=== PATIENT | male | born 1965 | race Caucasian/White ===

== ENCOUNTER 2019-01-30 18:15 | Inpatient (IN) | payer OTHER ==
[2019-01-30] MEDS ORDERED: Aspirin 81mg Chewable Tab PO STA (18:23)
[2019-01-30] MEDS ORDERED: Albuterol/Ipratropium Neb 3 ML AERS HHN ONE ×2 (18:29→19:02)
--- NOTE | 2019-01-30 18:29 | ED Physician Chart ---
ED Chief Complaint/HPI - Patient Information Date Seen:: 01/30/19 Time Seen:: 18:10 Chief Complaint:: Chest Pain History of Present Illness:: onset x 2 hours of chest pain cough, and dyspnea; pt denies trauma, H/As, S/T, neck pain, Abd. Pain, A/N/V/D/C, fever, chills, or urinary s/s Historian:: Patient, Friend Review:: Nurse's Note Reviewed, Old Chart Reviewed ED Review of Systems - Review of Systems General/Constitutional: No fever, No chills, No weight loss, No weakness, No diaphoresis, No edema, No loss of appetite Skin: No skin lesions, No rash, No bruising Head: No headache, No light-headedness Eyes: No loss of vision, No pain, No diplopia ENT: No earache, No nasal drainage, No sore throat, No tinnitus Neck: No neck pain, No swelling, No thyromegaly, No stiffness, No mass noted Cardio Vascular: Chest pain, No palpitations, No PND, No orthopnea, No edema Pulmonary: SOB, Cough, No sputum, Wheezing GI: No nausea, No vomiting, No diarrhea, No pain, No melena, No hematochezia, No constipation, No hematemesis G/U: No dysuria, No frequency, No hematuria, No nacturia Musculoskeletal: No bone or joint pain, No back pain, No muscle pain Endocrine: No polyuria, No polydipsia Psychiatric: No prior psych history, No depression, No anxiety, No suicidal ideation, No homicidal ideation, No auditory hallucination, No visual hallucination Hematopoietic: No bruising, No lymphadenopathy Allergic/Immuno: No urticaria, No angioedema Neurological: No syncope, No focal symptoms, No weakness, No paresthesia, No headache, No seizure, No dizziness, No confusion, No vertigo ED Past Medical History - Past Medical History Obtainable: Yes Past Medical History: Asthma/COPD Family History: HTN Social History: Smoker, Alcohol, No Drug Use, Single Surgical History: Hernia Psychiatricy History: None Medication: Reviewed ED Physical Exam - Physical Examination General/Constitutional: Awake, Well-developed, well-nourished, Alert, No distress, GCS 15, Non-toxic appearing, Ambulatory Head: Atraumatic Eyes: Lids, conjuctiva normal, PERRL, EOMI Skin: Nl inspection, No rash, No skin lesions, No ecchymosis, Well hydrated, No lymphadenopathy ENMT: External ears, nose nl, TM canals nl, Nasal exam nl, Lips, teeth, gums nl , Oropharynx nl, Tonsils nl Neck: Nontender, Full ROM w/o pain, No JVD, No nuchal rigidity, No bruit, No mass, No stridor Respiratory: Nl effort/Exclusion Other Respiratory comments:: Lungs: + Rales, Rhonchi, and Wheezes Cardio Vascular: RRR, No murmur, gallop, rubs, NL S1 S2, Carotid/Femoral/Distal pulses equal bilaterally GI: No tenderness/rebounding/guarding, No organomegaly, No hernia, Normal BS's, Nondistended, No mass/bruits, No McBurney tenderness, Rectum exam nl : No CVA tenderness Extremities: No tenderness or effusion, Full ROM, normal strength in all extremities, No edema, Normal digits & nails Neuro/Psych: Alert/oriented, DTR's symmetric, Normal sensory exam, Normal motor strength, Judgement/insight normal, Mood normal, Normal gait, No focal deficits Misc: Normal back, No paraspinal tenderness ED Labs/Radiology/EKG Results - Lab Results Comments:: Reviewed - Radiology Results Comments:: CXR: + Infiltrate; COPD - EKG Interpretations EKG Time:: 18:58 Rate & Rhythm: 109; ST Comments:: non-specific st-t changes ED Septic Shock - . Is Septic Shock (SBP<90, OR Lactate>4 mmol\L) present?: No ED Reassessment (Disposition) - Reassessment Reassessment Condition:: Improved - Diagnosis Diagnosis:: Chest Pain; Dyspnea; Cough; COPD; Tachycardia; Pneumonia; Sepsis; Leukocytosis; Exacerbation of COPD; Angina Pectoris; Dehydration
[2019-01-30] MEDS ORDERED: Aspirin 81mg Chewable Tab ONE (18:43)
[2019-01-30 18:48] LABS: EOSINOPHILE ABSOLUTE 0.5 Th/cmm (0.1-0.4); HEMOGLOBIN 15.2 gm/dL (12-16); LYMPHOCYTE ABSOLUTE 1.3 Th/cmm (1.5-3.0); MEAN CELL VOLUME 89.3 fl (80-99); MEAN CORPUSCULAR HEMOGLOBIN 30.9 pg (26.0-30.0); MEAN CORPUSCULAR HGB CONC 34.6 pg (28.0-36.0); MONOCYTE ABSOLUTE 1.4 Th/cmm (0.3-1.0); NEUTROPHILE ABSOLUTE 16.8 Th/cmm (1.8-8.0); PLATELET COUNT 394 Th/cmm (150-400); RED BLOOD COUNT 4.92 Mil/cmm (4.30-5.70)
[2019-01-30 18:58] LABS: INR 0.95 (0.5-1.4)
[2019-01-30] MEDS ORDERED: cefTRIAXone 1 GM in Sodium Chloride 0.9% 50 ML IV ONE (19:05)
[2019-01-30] MEDS ORDERED: Sodium Chloride 0.9% 1,000 ML IV ONE (19:11)
[2019-01-30 19:24] LABS: ALB/GLOB RATIO 1.5 (1.0-1.8); ALBUMIN 4.5 gm/dL (4.2-5.5); ALKALINE PHOSPHATASE 120 U/L (34-104); ANION GAP 17.2 (7.0-16.0); BILIRUBIN,TOTAL 0.5 mg/dL (0.3-1.0); BUN - UREA NITROGEN 10 mg/dL (7-25); CALCIUM SERUM 9.6 mg/dL (8.6-10.3); CARBON DIOXIDE 22.5 mEq/L (21.0-31.0); CHLORIDE 102 mEq/L (98-107); CHOLESTEROL 236 mg/dL (<200); CREATININE - SERUM 0.9 mg/dL (0.7-1.3); CREATININE KINASE 445 U/L (30-223); GFR AFRICAN-AMERICAN > 60.0 ml/min (>90); GFR NON AFRICAN-AMERICAN > 60.0 ml/min; GLUCOSE 114 mg/dL (70-105); HDL -HIGH DENSITY LIPOPROTEIN 53 mg/dL (23-92); POTASSIUM SERUM 3.7 mEq/L (3.5-5.1); SGOT 24 U/L (13-39); SGPT/ALT 27 U/L (7-52); SODIUM SERUM 138 mEq/L (136-145); TOTAL PROTEIN,SERUM 7.5 gm/dL (6.0-8.3); TRIGLYCERIDES 66 mg/dL (<150)
[2019-01-30 19:39] LABS: DDIMER QUANT < 100 ng/mL (100-400)
[2019-01-30 19:58] LABS: EOSINOPHIL 0 % (0-5); LYMPHOCYTE 8 % (20-50); MONOCYTE 8 % (2-10); NEUTROPHILS 84 % (40-80); PLATELET ESTIMATE ADEQUATE (NORMAL)
[2019-01-30 19:59] LABS: PLATELET MORPHOLOGY NORMAL (NORMAL)
[2019-01-30] MEDS ORDERED: Acetaminophen 500 MG TAB PO PRN (20:39)
[2019-01-30] MEDS: Albuterol Nebulizer 2.5mg/3mL HHN PRN (22:15)
[2019-01-30 23:37] VITALS: BP 124/87
[2019-01-31] MEDS: Azithromycin 500 MG in Sodium Chloride 0.9% 250 ML IV SCH ×3 (00:39→20:45)
[2019-01-31] MEDS: Albuterol Nebulizer 2.5mg/3mL HHN PRN ×5 (02:17→23:26)
[2019-01-31] MEDS: methylPREDNISolone SS 40 mg Vial IVP SCH ×4 (02:57→17:48)
[2019-01-31] MEDS ORDERED: methylPREDNISolone SS 40 mg Vial IVP SCH (06:00)
--- NOTE | 2019-01-31 09:17 | Diagnostic Imaging Report ---
CHEST X-RAY: AP view INDICATION: pain COMPARISON: None FINDINGS: Chronic lung changes are noted. There is no focal consolidation or pleural effusions The heart is normal in size. The osseous structures demonstrate no acute abnormalities. IMPRESSION: Chronic lung changes. No focal consolidation identified.
--- NOTE | 2019-01-31 09:33 | Diagnostic Imaging Report ---
CT Chest without IV contrast HISTORY: Chest pain COMPARISON: Chest x-ray performed on 01/30/2019. Technique: Axial images were obtained from the base of the neck to the upper abdomen following administration of IV contrast. Coronal reconstructions were made. Total DLP to 53, CTD I 6 FINDINGS: Evaluation of the mediastinum is limited due to lack of IV contrast. Borderline prominent mediastinal lymph nodes are seen the largest along the right paratracheal region measuring 1.0 x 0.7 cm (image 28, series 2). No evidence of an aortic aneurysm. Heart size is normal. No pericardial effusion identified. Minimal atherosclerotic vascular disease is noted. Evaluation of the lungs demonstrates hyperinflated lungs and possible COPD changes with mild bullous changes of the lung apices. There are mild atelectatic changes of the lung bases with 1 to 2 mm nodularities along the lung bases. No effusions or focal consolidation. There is focal eventration of the right hemidiaphragm. The upper abdomen demonstrates evidence of prior cholecystectomy. The osseous structures demonstrate no acute abnormalities. IMPRESSION: Limited exam due to lack of IV contrast. Minimal atherosclerotic vascular disease is noted. No evidence of an aortic aneurysm. COPD lung changes with mild biapical bullous changes. Minimal hypoventilatory and atelectatic changes at lung bases with tiny 1 to 2 mm nodularities, nonspecific however, infectious or inflammatory process cannot be excluded. Consider follow-up surveillance exam after resolution of acute symptoms. No focal consolidation or effusions Borderline prominent mediastinal lymph nodes nonspecific. Evidence of prior cholecystectomy.
[2019-01-31 12:26] LABS: URINE SOURCE MIDSTREAM
[2019-01-31 12:29] LABS: URINE BILIRUBIN NEGATIVE (NEGATIVE); URINE BLOOD NEGATIVE (NEGATIVE); URINE GLUCOSE (UA) 250 mg/dL (NEGATIVE); URINE KETONE NEGATIVE (NEGATIVE); URINE LEUKOCYTE ESTERASE NEGATIVE (NEGATIVE); URINE NITRATE NEGATIVE (NEGATIVE); URINE PROTEIN NEGATIVE (NEGATIVE); URINE UROBILINOGEN 0.2 E.U./dL (0.2 - 1.0)
[2019-01-31 12:30] LABS: URINE CLARITY CLEAR (CLEAR); URINE COLOR YELLOW; URINE MICROSCOPIC INDICATED? YES
[2019-01-31 12:38] LABS: URINE EPITHELIAL CELLS OCCASIONAL /lpf (FEW); URINE RBC NONE SEEN /hpf (0-5); URINE WBC 0-2 /hpf (0-5)
[2019-01-31 12:42] LABS: URINE BACTERIA RARE /hpf (NONE SEEN)
[2019-02-01] MEDS: methylPREDNISolone SS 40 mg Vial IVP SCH ×4 (00:08→18:14)
--- NOTE | 2019-02-01 02:14 | Consultation ---
DATE OF CONSULTATION: 01/31/2019 INFECTIOUS DISEASE CONSULTATION REFERRING PHYSICIAN: Dr. Schumacher. REASON FOR CONSULTATION: Leukocytosis. HISTORY OF PRESENT ILLNESS: The patient is a 53-year-old male with a past medical history of severe COPD, presented to the ER for cough and shortness of breath. The patient denies any fever or chills. On initial evaluation, his temperature was 98.7 degrees Fahrenheit and WBC count was 20,000 with neutrophil 84%. CT scan of the chest showed severe COPD with bullous changes and a small 1-2 mm nodule. Otherwise, no acute changes. No consolidation. Besides this, the patient's CPK was 445. Antibiotic torres, the patient was started on Zosyn and Zithromax. ID consult was called for further antibiotic management. PAST MEDICAL HISTORY: Includes COPD. ALLERGIES: TRAMADOL. MEDICATIONS: As per medication reconciliation sheet. Antibiotic torres, the patient on Zosyn and Zithromax. SOCIAL HISTORY: The patient lives at home. The patient has a history of smoking in the past, quit 3 years ago. He was at the [employer]. No alcohol, no drug use. FAMILY HISTORY: Hypertension as per the chart. REVIEW OF SYSTEMS: GENERAL: The patient has no fever, no chills, no generalized weakness. HEENT: The patient denies any diplopia, photophobia, or sore throat. RESPIRATORY: The patient has a cough and shortness of breath with wheezing, improving with the current treatment. CARDIOVASCULAR: The patient denies any chest pain or palpitation. GASTROINTESTINAL: The patient denies any nausea, vomiting, diarrhea or constipation. GENITOURINARY: No dysuria. NEUROLOGIC: No headache, no dizziness, no focal weakness. PHYSICAL EXAMINATION: CURRENT VITAL SIGNS: Shows temperature is 97.4 degrees Fahrenheit, pulse 100, respiration is 20, blood pressure 125/68. GENERAL: The patient is comfortable lying in the bed, not in acute distress. Well nourished, well developed. HEENT: Head is normocephalic, atraumatic. Oral cavity moist, pink tongue. EYES: No pallor, no icterus. Pupils PERRLA, EOMI. NECK: Supple, no JVD, no carotid bruit. Trachea in midline. CHEST: Bilateral vesicular sounds noted. No crackles or wheezing. HEART: S1, S2 within normal limits. Regular rhythm. No murmur, no gallop. ABDOMEN: Soft, nontender, nondistended. Bowel sounds present. EXTREMITIES: No cyanosis, no clubbing, no edema. NEUROLOGICAL: Alert, awake, oriented x 3. No focal deficit. LABORATORY DATA: Current lab shows WBC count is 20,000, hemoglobin is 15.2, hematocrit 44, platelets are 394,000, neutrophil 84% and INR 0.95. Sodium 138, potassium 3.7, chloride 102, bicarbonate is 22.5, BUN is 10, creatinine 0.9, glucose is 114. Lactic acid 1.92. Urinalysis negative nitrite, negative leukoesterase. ____ is less than 10. Chest x-ray, chronic lung changes, no focal consolidation. CT scan of the chest suggested a minimal atherosclerotic vascular disease, no evidence of aortic aneurysm, COPD changes with mild biapical bullous changes, minimal hypoventilatory and atelectatic changes at the lung bases with tiny 1-2 mm nodularities. Nonspecific; however, infectious or inflammatory process cannot be excluded. Consider followup surveillance exam without resolution of acute symptoms. No focal consolidation, borderline prominent mediastinal lymph node, nonspecific, evidence of prior cholecystectomy. IMPRESSION: 1. Leukocytosis, most likely reactive. 2. Lower lobe nodular infiltrate, pneumonia versus atelectasis. 3. Chronic obstructive pulmonary disease exacerbation. 4. Rhabdomyolysis. RECOMMENDATIONS: Continue IV fluid support, steroid and change antibiotic to Rocephin and Zithromax. Follow up CBC. Monitor CPK and CBC in the morning. Continue Zithromax. Thank you, Dr. Schumacher for involving me in taking care of this patient. [facility]# [id number]
[2019-02-01] MEDS: Albuterol Nebulizer 2.5mg/3mL HHN PRN ×4 (07:06→22:28)
--- NOTE | 2019-02-01 14:42 | Consultation ---
DATE OF CONSULTATION: 01/31/2019 PATIENT OF: Dr. Schumacher. Thank you very much for this consultation. HISTORY OF PRESENT ILLNESS: The patient is a 53-year-old male with history of COPD for 3 years. The patient started having increased shortness of breath, cough, congestion and wheezing and was admitted for treatment and management. The patient was started on IV Solu-Medrol, has improved since last night and he is still having some wheezing and cough. The patient uses Symbicort at home. He has moved from [place] here. He is planning to stay here. SOCIAL HISTORY: Smoking for 30 years, over 1-2 packs a day, quit about 3 years ago. REVIEW OF SYSTEMS: GENERAL: No weakness and fatigue. CARDIOVASCULAR: No chest pain or palpation. RESPIRATORY: Shortness of breath, wheezing. GASTROINTESTINAL: No vomiting. PHYSICAL EXAMINATION: GENERAL: He is awake, alert, not in acute distress. VITAL SIGNS: Temperature 97.1, pulse 92, respirations 18, blood pressure 124/____, saturation 90%. HEENT: Atraumatic and normocephalic. Pupils react to light and accommodation. Ears, nose and throat normal. NECK: Supple. No JVD. CHEST: There is diffuse wheezing and rhonchi bilaterally. HEART: Regular rate and rhythm. ABDOMEN: Soft. EXTREMITIES: No edema. LABORATORY DATA: WBC is 20.0, hemoglobin is 15.2, hematocrit 44.0, platelets 394. Sodium is 130, potassium 3.7, BUN is 10, creatinine 0.9. IMPRESSION: This is a 53-year-old male with: 1. Acute chronic obstructive pulmonary disease exacerbation. 2. Acute bronchitis. PLAN: 1. IV Solu-Medrol. 2. Nebulizer. 3. Antibiotics. We will follow the patient with you. Thank you very much for this consultation. JOB# [id number]
[2019-02-01] MEDS: Azithromycin 500 MG in Sodium Chloride 0.9% 250 ML IV SCH (20:27)
--- NOTE | 2019-02-01 23:28 | General Progress Note ---
Subjective - Review of Systems Service Date: 02/01/19 Subjective: Patient seen and examined feels better sob better denied chest pain or palpitation or fever or chills Objective - Results Result Diagrams: 01/30/19 18:40 01/30/19 18:40 Recent Labs: Laboratory Last Values WBC 20.0 Th/cmm (4.8-10.8) H 01/30/19 18:40 RBC 4.92 Mil/cmm (4.30-5.70) 01/30/19 18:40 Hgb 15.2 gm/dL (12-16) 01/30/19 18:40 Hct 44.0 % (41.0-60) 01/30/19 18:40 MCV 89.3 fl (80-99) 01/30/19 18:40 MCH 30.9 pg (26.0-30.0) H 01/30/19 18:40 MCHC Differential 34.6 pg (28.0-36.0) 01/30/19 18:40 RDW 13.0 % (11.5-20.0) 01/30/19 18:40 Plt Count 394 Th/cmm (150-400) 01/30/19 18:40 MPV 7.6 fl 01/30/19 18:40 Add Manual Diff YES 01/30/19 18:40 Neutrophils (Manual) 84 % (40-80) H 01/30/19 18:40 Lymphocytes 8 % (20-50) L 01/30/19 18:40 Monocytes 8 % (2-10) 01/30/19 18:40 Eosinophils 0 % (0-5) 01/30/19 18:40 Platelet Estimate ADEQUATE (NORMAL) 01/30/19 18:40 Platelet Morphology NORMAL (NORMAL) 01/30/19 18:40 RBC Morph Micro Appear NORMAL (NORMAL) 01/30/19 18:40 PT 9.9 SECONDS (9.5-11.5) 01/30/19 18:40 INR 0.95 (0.5-1.4) 01/30/19 18:40 PTT (Actin FS) 28.7 SECONDS (26.0-38.0) 01/30/19 18:40 D-Dimer < 100 ng/mL (100-400) L 01/30/19 18:40 Sodium 138 mEq/L (136-145) 01/30/19 18:40 Potassium 3.7 mEq/L (3.5-5.1) 01/30/19 18:40 Chloride 102 mEq/L (98-107) 01/30/19 18:40 Carbon Dioxide 22.5 mEq/L (21.0-31.0) 01/30/19 18:40 Anion Gap 17.2 (7.0-16.0) H 01/30/19 18:40 BUN 10 mg/dL (7-25) 01/30/19 18:40 Creatinine 0.9 mg/dL (0.7-1.3) 01/30/19 18:40 Est GFR ( Amer) > 60.0 ml/min (>90) 01/30/19 18:40 Est GFR (Non-Af Amer) > 60.0 ml/min 01/30/19 18:40 BUN/Creatinine Ratio 11.1 01/30/19 18:40 Glucose 114 mg/dL (70-105) H 01/30/19 18:40 Whole Bld Lactic Acid 1.92 mmol/L (0.60-1.99) 01/30/19 18:40 Calcium 9.6 mg/dL (8.6-10.3) 01/30/19 18:40 Total Bilirubin 0.5 mg/dL (0.3-1.0) 01/30/19 18:40 AST 24 U/L (13-39) 01/30/19 18:40 ALT 27 U/L (7-52) 01/30/19 18:40 Alkaline Phosphatase 120 U/L (34-104) H 01/30/19 18:40 Creatine Kinase 445 U/L (30-223) H 01/30/19 18:40 CK-MB (CK-2) 8.0 ng/mL (0.6-6.3) H 01/30/19 18:40 Troponin I 0.01 ng/mL (0.01-0.05) 01/30/19 18:40 B-Natriuretic Peptide 19.4 pg/mL (5.0-100.0) 01/30/19 18:40 Total Protein 7.5 gm/dL (6.0-8.3) 01/30/19 18:40 Albumin 4.5 gm/dL (4.2-5.5) 01/30/19 18:40 Globulin 3.0 gm/dL 01/30/19 18:40 Albumin/Globulin Ratio 1.5 (1.0-1.8) 01/30/19 18:40 Triglycerides 66 mg/dL (<150) 01/30/19 18:40 Cholesterol 236 mg/dL (<200) H 01/30/19 18:40 LDL Cholesterol Direct 179 mg/dL (75-193) 01/30/19 18:40 HDL Cholesterol 53 mg/dL (23-92) 01/30/19 18:40 Urine Source MIDSTREAM 01/31/19 12:25 Urine Color YELLOW 01/31/19 12:25 Urine Clarity CLEAR (CLEAR) 01/31/19 12:25 Urine pH 6.0 (4.6 - 8.0) 01/31/19 12:25 Ur Specific Protem 1.015 (1.005-1.030) 01/31/19 12:25 Urine Protein NEGATIVE mg/dL (NEGATIVE) 01/31/19 12:25 Urine Glucose (UA) 250 mg/dL (NEGATIVE) H 01/31/19 12:25 Urine Ketones NEGATIVE mg/dL (NEGATIVE) 01/31/19 12:25 Urine Blood NEGATIVE (NEGATIVE) 01/31/19 12:25 Urine Nitrate NEGATIVE (NEGATIVE) 01/31/19 12:25 Urine Bilirubin NEGATIVE (NEGATIVE) 01/31/19 12:25 Urine Urobilinogen 0.2 E.U./dL (0.2 - 1.0) 01/31/19 12:25 Ur Leukocyte Esterase NEGATIVE (NEGATIVE) 01/31/19 12:25 Urine RBC NONE SEEN /hpf (0-5) 01/31/19 12:25 Urine WBC 0-2 /hpf (0-5) 01/31/19 12:25 Ur Epithelial Cells OCCASIONAL /lpf (FEW) 01/31/19 12:25 Urine Bacteria RARE /hpf (NONE SEEN) 01/31/19 12:25 Acetaminophen < 10.0 ug/mL (10.0-30.0) L 01/30/19 18:40 - Physical Exam Vitals and I&O: Vital Signs Temp 97.9 F 02/01/19 16:00 Pulse 85 02/01/19 22:28 Resp 18 02/01/19 22:28 BP 108/61 02/01/19 16:00 Pulse Ox 96 02/01/19 22:28 Intake & Output 02/01/19 02/01/19 02/02/19 06:59 18:59 06:59 Intake Total 450 850 Balance 450 850 Weight (lbs) 71.668 kg Intake: Intake, IV Amount 450 100 Azithromycin 500 mg In 250 Sodium Chloride 0.9% 250 ml @ 250 mls/hr IV Q24H [facility] Rx#:[id number] Piperacillin Sodium/ 200 100 Tazobact 4.5 gm In Sodium Chloride 0.9% 100 ml @ 100 mls/hr IV Q8HR [facility] Rx #:[id number] Oral 750 Other: # Voids 3 Stool Characteristics Soft Soft Weight Source Bedscale Active Medications: Current Medications Acetaminophen (Tylenol Extra Strength) 500 mg PO Q6H PRN PRN Reason: Fever > 101 Stop: 03/31/19 20:38 Albuterol Sulfate (Albuterol 2.5mg/3ml Neb Ud) 2.5 mg HHN Q2HRT PRN PRN Reason: Shortness of Breath Stop: 03/31/19 20:38 Last Admin: 02/01/19 22:28 Dose: 2.5 mg Piperacillin Sod/Tazobactam (Sod 4.5 gm/ Sodium Chloride) 100 mls @ 100 mls/hr IV Q8HR [facility] Stop: 03/31/19 20:59 Last Admin: 02/01/19 21:55 Dose: 100 mls/hr Azithromycin 500 mg/ Sodium (Chloride) 250 mls @ 250 mls/hr IV Q24H [facility] Stop: 03/31/19 20:59 Last Admin: 02/01/19 20:27 Dose: 250 mls/hr Methylprednisolone Sodium Succinate (Solu-Medrol) 40 mg IVP Q6HR [facility] Stop: 04/02/19 17:59 Last Admin: 02/01/19 18:14 Dose: 40 mg Ondansetron HCl (Zofran) 4 mg IV Q6H PRN PRN Reason: Vomiting Stop: 03/31/19 20:38 General: Alert Cardiovascular: Regular rate Lungs: Other (rales) Extremities: no Edema Assessment/Plan - Assessment Assessment: Pneumonia Acute COPD Exacerbation - Plan Plan: Continue Zosyn Continue Solumedrol Continue HHN Oxygen
[2019-02-02] MEDS: methylPREDNISolone SS 40 mg Vial IVP SCH ×4 (00:12→17:00)
--- NOTE | 2019-02-02 03:38 | History & Physical ---
ADMIT DATE: 01/30/2019 CHIEF COMPLAINT: Shortness of breath. HISTORY OF PRESENT ILLNESS: A 53-year-old female with underlying history of COPD, chronic smoker, who was brought in the Emergency Room for evaluation of shortness of breath. The patient was admitted and diagnosed with acute exacerbation pneumonia ____ treatments. The patient ____ 3-4 days, had fevers, chills. Subsequently, symptoms worsened ____ breathing difficulties. The patient tried all his inhalers multiple times, but did not help. PAST MEDICAL HISTORY: COPD. PAST SURGICAL HISTORY: Denies. SOCIAL HISTORY: Lives at home. Denies any current alcohol, tobacco or drug use. Ex-smoker, quit smoking about 3 years ago. FAMILY HISTORY: Noncontributory. ALLERGIES: ALLERGIC TO TRAMADOL. REVIEW OF SYSTEMS: Positive for shortness of breath, cough. No fever, no chills, no nausea, no abdominal pain. No chest pain, no dizziness and no diaphoresis, or any other concern reported. PHYSICAL EXAMINATION: VITAL SIGNS: Temperature 97.9, pulse 94, respirations 18, blood pressure ____. HEENT: Unremarkable. HEART: S1 and S2 normal. LUNGS: Bilateral expiratory wheezing. ABDOMEN: Soft and nontender. NEUROLOGIC: ____. IMPRESSION: 1. Pneumonia. 2. ____ exacerbation. PLAN: The patient was started on Zosyn, ____, bronchodilator, IV Solu-Medrol, oxygen support. Pulmonology and ID consulted. We will follow further recommendations ____ smoking cessation advised. [facility]# [id number]
[2019-02-02 05:36] LABS: EOSINOPHILE ABSOLUTE 0.1 Th/cmm (0.1-0.4); HEMATOCRIT 37.8 % (41.0-60); HEMOGLOBIN 12.9 gm/dL (12-16); MEAN CELL VOLUME 90.4 fl (80-99); MEAN CORPUSCULAR HEMOGLOBIN 30.7 pg (26.0-30.0); MONOCYTE ABSOLUTE 0.3 Th/cmm (0.3-1.0); NEUTROPHILE ABSOLUTE 19.7 Th/cmm (1.8-8.0); PLATELET COUNT 345 Th/cmm (150-400); RED BLOOD COUNT 4.18 Mil/cmm (4.30-5.70); RED CELL DISTRIBUTION WIDTH 13.2 % (11.5-20.0)
[2019-02-02 05:44] LABS: WHITE BLOOD COUNT 21.1 Th/cmm (4.8-10.8)
[2019-02-02 05:57] LABS: ANION GAP 10.9 (7.0-16.0); BUN - UREA NITROGEN 18 mg/dL (7-25); CALCIUM SERUM 8.9 mg/dL (8.6-10.3); CARBON DIOXIDE 24.4 mEq/L (21.0-31.0); CHLORIDE 107 mEq/L (98-107); CREATININE - SERUM 0.7 mg/dL (0.7-1.3); GFR AFRICAN-AMERICAN > 60.0 ml/min (>90); GFR NON AFRICAN-AMERICAN > 60.0 ml/min; GLUCOSE 148 mg/dL (70-105); POTASSIUM SERUM 4.3 mEq/L (3.5-5.1); SODIUM SERUM 138 mEq/L (136-145)
[2019-02-02 08:06] LABS: BAND NEUTROPHILE 3 % (0-10); LYMPHOCYTE 7 % (20-50); MONOCYTE 3 % (2-10); NEUTROPHILS 87 % (40-80); PLATELET ESTIMATE ADEQUATE (NORMAL)
[2019-02-02] MEDS: cefTRIAXone 2 GM in Sodium Chloride 0.9% 100 ML IV SCH (08:16)
--- NOTE | 2019-02-02 08:39 | Progress Notes ---
DATE: 02/01/2019 INFECTIOUS DISEASE PROGRESS NOTE SUBJECTIVE: The patient is lying in bed, not in acute distress, no fever, no chills. OBJECTIVE: CURRENT VITAL SIGNS: Show temperature is 97.7, pulse 70, respiration 20, blood pressure 108/58. GENERAL: The patient is comfortable lying in the bed, no acute distress. HEENT: Head is normocephalic, atraumatic. Oral cavity moist, pink tongue. NECK: Supple, no JVD, no carotid bruit. Trachea in the midline. CHEST: Bilateral breath sounds. No crackles or wheezing. HEART: S1, S2 within normal limits. Regular rhythm. No murmur, no gallop. ABDOMEN: Soft, nontender, nondistended. Bowel sounds present. EXTREMITIES: No cyanosis, no clubbing, no edema. NEUROLOGIC: Alert, awake, oriented x 3. LABORATORY DATA: Current lab shows WBC count is 20,000, hemoglobin is 15.2, platelets are 394,000. Creatinine is 0.9. IMPRESSION: 1. Leukocytosis, most likely reactive. 2. Lower lobe nodular infiltrate, pneumonia versus atelectasis. 3. Chronic obstructive pulmonary disease exacerbation. 4. Rhabdomyolysis. RECOMMENDATIONS: Recommend to continue IV fluid support, steroids and antibiotic to Rocephin and Zithromax. [facility]# [id number]
--- NOTE | 2019-02-02 09:52 | Diagnostic Imaging Report ---
Portable chest x-ray History: Cough Allowing for portable technique the heart size is normal. No focal pulmonary parenchymal processes. No hilar or mediastinal abnormalities. Impression: No acute abnormalities.
[2019-02-02] MEDS: Albuterol Nebulizer 2.5mg/3mL HHN PRN (11:04)
--- NOTE | 2019-02-02 13:33 | Progress Notes ---
DATE: 02/01/2019 PULMONARY PROGRESS NOTE SUBJECTIVE: The patient appears to be doing a little bit better. He feels less short of breath, but still dyspnea on exertion. OBJECTIVE: VITAL SIGNS: Temperature 97.5, pulse 94, respirations 20, blood pressure 90/63, saturation 94% on 3 liters oxygen. CHEST: Good breath sounds, better air exchange. Still bilateral wheezing. HEART: Regular rate and rhythm. ABDOMEN: Soft with tenderness. EXTREMITIES: No edema. IMPRESSION: 1. Respiratory failure. 2. Chronic obstructive pulmonary disease exacerbation and acute bronchitis. PLAN: 1. Continue IV Solu-Medrol. 2. Nebulizer treatment. 3. Antibiotics and supportive care. May be home in a couple of days. [facility]# [id number]
[2019-02-02] MEDS ORDERED: Albuterol Nebulizer 2.5mg/3mL HHN SCH (15:00)
[2019-02-02] MEDS: Albuterol/Ipratropium Neb 3 ML AERS HHN SCH ×3 (15:24→23:16)
[2019-02-02] MEDS: Azithromycin 500 MG in Sodium Chloride 0.9% 250 ML IV SCH (20:34)
[2019-02-02] MEDS ORDERED: PROMETHAZINE 12.5 MG RC ONE (21:04)
--- NOTE | 2019-02-02 22:37 | General Progress Note ---
Subjective - Review of Systems Subjective: Patient seen and examined feels better sob better denied chest pain or palpitation or fever or chills Objective - Results Result Diagrams: 02/02/19 05:24 02/02/19 05:24 Recent Labs: Laboratory Last Values WBC 21.1 Th/cmm (4.8-10.8) H* 02/02/19 05:24 RBC 4.18 Mil/cmm (4.30-5.70) L 02/02/19 05:24 Hgb 12.9 gm/dL (12-16) 02/02/19 05:24 Hct 37.8 % (41.0-60) L 02/02/19 05:24 MCV 90.4 fl (80-99) 02/02/19 05:24 MCH 30.7 pg (26.0-30.0) H 02/02/19 05:24 MCHC Differential 34.0 pg (28.0-36.0) 02/02/19 05:24 RDW 13.2 % (11.5-20.0) 02/02/19 05:24 Plt Count 345 Th/cmm (150-400) 02/02/19 05:24 MPV 7.6 fl 02/02/19 05:24 Add Manual Diff YES 02/02/19 05:24 Band Neutrophils % 3 % (0-10) 02/02/19 05:24 Neutrophils (Manual) 87 % (40-80) H 02/02/19 05:24 Lymphocytes 7 % (20-50) L 02/02/19 05:24 Monocytes 3 % (2-10) 02/02/19 05:24 Eosinophils 0 % (0-5) 01/30/19 18:40 Platelet Estimate ADEQUATE (NORMAL) 02/02/19 05:24 Platelet Morphology NORMAL (NORMAL) 01/30/19 18:40 RBC Morph Micro Appear NORMAL (NORMAL) 01/30/19 18:40 PT 9.9 SECONDS (9.5-11.5) 01/30/19 18:40 INR 0.95 (0.5-1.4) 01/30/19 18:40 PTT (Actin FS) 28.7 SECONDS (26.0-38.0) 01/30/19 18:40 D-Dimer < 100 ng/mL (100-400) L 01/30/19 18:40 Sodium 138 mEq/L (136-145) 02/02/19 05:24 Potassium 4.3 mEq/L (3.5-5.1) 02/02/19 05:24 Chloride 107 mEq/L (98-107) 02/02/19 05:24 Carbon Dioxide 24.4 mEq/L (21.0-31.0) 02/02/19 05:24 Anion Gap 10.9 (7.0-16.0) 02/02/19 05:24 BUN 18 mg/dL (7-25) 02/02/19 05:24 Creatinine 0.7 mg/dL (0.7-1.3) 02/02/19 05:24 Est GFR ( Amer) > 60.0 ml/min (>90) 02/02/19 05:24 Est GFR (Non-Af Amer) > 60.0 ml/min 02/02/19 05:24 BUN/Creatinine Ratio 25.7 02/02/19 05:24 Glucose 148 mg/dL (70-105) H 02/02/19 05:24 Whole Bld Lactic Acid 1.92 mmol/L (0.60-1.99) 01/30/19 18:40 Calcium 8.9 mg/dL (8.6-10.3) 02/02/19 05:24 Total Bilirubin 0.5 mg/dL (0.3-1.0) 01/30/19 18:40 AST 24 U/L (13-39) 01/30/19 18:40 ALT 27 U/L (7-52) 01/30/19 18:40 Alkaline Phosphatase 120 U/L (34-104) H 01/30/19 18:40 Creatine Kinase 445 U/L (30-223) H 01/30/19 18:40 CK-MB (CK-2) 8.0 ng/mL (0.6-6.3) H 01/30/19 18:40 Troponin I 0.01 ng/mL (0.01-0.05) 01/30/19 18:40 B-Natriuretic Peptide 19.4 pg/mL (5.0-100.0) 01/30/19 18:40 Total Protein 7.5 gm/dL (6.0-8.3) 01/30/19 18:40 Albumin 4.5 gm/dL (4.2-5.5) 01/30/19 18:40 Globulin 3.0 gm/dL 01/30/19 18:40 Albumin/Globulin Ratio 1.5 (1.0-1.8) 01/30/19 18:40 Triglycerides 66 mg/dL (<150) 01/30/19 18:40 Cholesterol 236 mg/dL (<200) H 01/30/19 18:40 LDL Cholesterol Direct 179 mg/dL (75-193) 01/30/19 18:40 HDL Cholesterol 53 mg/dL (23-92) 01/30/19 18:40 Urine Source MIDSTREAM 01/31/19 12:25 Urine Color YELLOW 01/31/19 12:25 Urine Clarity CLEAR (CLEAR) 01/31/19 12:25 Urine pH 6.0 (4.6 - 8.0) 01/31/19 12:25 Ur Specific [place] 1.015 (1.005-1.030) 01/31/19 12:25 Urine Protein NEGATIVE mg/dL (NEGATIVE) 01/31/19 12:25 Urine Glucose (UA) 250 mg/dL (NEGATIVE) H 01/31/19 12:25 Urine Ketones NEGATIVE mg/dL (NEGATIVE) 01/31/19 12:25 Urine Blood NEGATIVE (NEGATIVE) 01/31/19 12:25 Urine Nitrate NEGATIVE (NEGATIVE) 01/31/19 12:25 Urine Bilirubin NEGATIVE (NEGATIVE) 01/31/19 12:25 Urine Urobilinogen 0.2 E.U./dL (0.2 - 1.0) 01/31/19 12:25 Ur Leukocyte Esterase NEGATIVE (NEGATIVE) 01/31/19 12:25 Urine RBC NONE SEEN /hpf (0-5) 01/31/19 12:25 Urine WBC 0-2 /hpf (0-5) 01/31/19 12:25 Ur Epithelial Cells OCCASIONAL /lpf (FEW) 01/31/19 12:25 Urine Bacteria RARE /hpf (NONE SEEN) 01/31/19 12:25 Acetaminophen < 10.0 ug/mL (10.0-30.0) L 01/30/19 18:40 - Physical Exam Vitals and I&O: Vital Signs Temp 97.3 F 02/02/19 16:00 Pulse 89 02/02/19 19:27 Resp 20 02/02/19 21:00 BP 105/64 02/02/19 16:00 Pulse Ox 97 02/02/19 19:27 Intake & Output 02/02/19 02/02/19 02/03/19 06:59 18:59 06:59 Intake Total 850 400 Balance 850 400 Weight (lbs) 71.668 kg 71.668 kg Intake: Intake, IV Amount 350 Azithromycin 500 mg In 250 Sodium Chloride 0.9% 250 ml @ 250 mls/hr IV Q24H [facility] Rx#:[id number] Piperacillin Sodium/ 100 Tazobact 4.5 gm In Sodium Chloride 0.9% 100 ml @ 100 mls/hr IV Q8HR [facility] Rx #:[id number] Oral 500 400 Other: # Voids 3 2 # Bowel Movements 2 Stool Characteristics Soft Formed Brown Weight Source Bedscale Bedscale Active Medications: Current Medications Acetaminophen (Tylenol Extra Strength) 500 mg PO Q6H PRN PRN Reason: Fever > 101 Stop: 03/31/19 20:38 Albuterol Sulfate (Albuterol 2.5mg/3ml Neb Ud) 2.5 mg HHN Q2HRT PRN PRN Reason: Shortness of Breath Stop: 03/31/19 20:38 Last Admin: 02/02/19 11:04 Dose: 2.5 mg Albuterol/Ipratropium (Duoneb Neb) 3 ml HHN Q4HRT [facility] Stop: 04/03/19 14:59 Last Admin: 02/02/19 19:26 Dose: 3 ml Guaifenesin (Mucinex) 600 mg PO Q12HR PRN PRN Reason: Cough or Congestion Stop: 04/03/19 14:55 Last Admin: 02/02/19 15:22 Dose: 600 mg Azithromycin 500 mg/ Sodium (Chloride) 250 mls @ 250 mls/hr IV Q24H [facility] Stop: 03/31/19 20:59 Last Admin: 02/02/19 20:34 Dose: 250 mls/hr Ceftriaxone Sodium 2 gm/ (Sodium Chloride) 100 mls @ 100 mls/hr IV Q24H [facility] Stop: 04/03/19 08:59 Last Admin: 02/02/19 08:16 Dose: 100 mls/hr Methylprednisolone Sodium Succinate (Solu-Medrol) 40 mg IVP Q6HR [facility] Stop: 04/02/19 17:59 Last Admin: 02/02/19 17:00 Dose: 40 mg Ondansetron HCl (Zofran) 4 mg IV Q6H PRN PRN Reason: Vomiting Stop: 03/31/19 20:38 Promethazine HCl (Phenergan) 6.25 mg PO Q4H PRN PRN Reason: Cough Stop: 04/03/19 14:56 Last Admin: 02/02/19 15:22 Dose: 6.25 mg General: Alert Cardiovascular: Regular rate Lungs: Other (rales) Extremities: no Edema Assessment/Plan - Assessment Assessment: Pneumonia Acute COPD Exacerbation - Plan Plan: Continue Zosyn Continue Solumedrol Continue HHN Oxygen
[2019-02-03] MEDS: methylPREDNISolone SS 40 mg Vial IVP SCH ×3 (00:08→11:02)
[2019-02-03] MEDS: Albuterol/Ipratropium Neb 3 ML AERS HHN SCH ×3 (02:47→10:28)
[2019-02-03 05:01] LABS: HEMATOCRIT 41.2 % (41.0-60); HEMOGLOBIN 13.7 gm/dL (12-16); MEAN CELL VOLUME 91.7 fl (80-99); MEAN CORPUSCULAR HEMOGLOBIN 30.6 pg (26.0-30.0); MEAN CORPUSCULAR HGB CONC 33.4 pg (28.0-36.0); PLATELET COUNT 355 Th/cmm (150-400); RED BLOOD COUNT 4.49 Mil/cmm (4.30-5.70); RED CELL DISTRIBUTION WIDTH 13.1 % (11.5-20.0)
[2019-02-03 05:37] LABS: WHITE BLOOD COUNT 15.5 Th/cmm (4.8-10.8)
[2019-02-03 05:41] LABS: ANION GAP 11.4 (7.0-16.0); BUN - UREA NITROGEN 16 mg/dL (7-25); CALCIUM SERUM 9.1 mg/dL (8.6-10.3); CARBON DIOXIDE 23.7 mEq/L (21.0-31.0); CHLORIDE 102 mEq/L (98-107); CREATININE - SERUM 0.6 mg/dL (0.7-1.3); GFR AFRICAN-AMERICAN > 60.0 ml/min (>90); GFR NON AFRICAN-AMERICAN > 60.0 ml/min; GLUCOSE 141 mg/dL (70-105); POTASSIUM SERUM 4.1 mEq/L (3.5-5.1); SODIUM SERUM 133 mEq/L (136-145)
--- NOTE | 2019-02-03 05:47 | Infectious Disease Prog Note ---
Infectious Disease Subjective - Review of Systems Service Date: 02/03/19 Subjective: There is no new change, no fever. Infectious Disease Objective - Results Result Diagrams: 02/03/19 04:45 02/02/19 05:24 Recent Labs: Laboratory Last Values WBC 15.5 Th/cmm (4.8-10.8) H D 02/03/19 04:45 RBC 4.49 Mil/cmm (4.30-5.70) 02/03/19 04:45 Hgb 13.7 gm/dL (12-16) 02/03/19 04:45 Hct 41.2 % (41.0-60) 02/03/19 04:45 MCV 91.7 fl (80-99) 02/03/19 04:45 MCH 30.6 pg (26.0-30.0) H 02/03/19 04:45 MCHC Differential 33.4 pg (28.0-36.0) 02/03/19 04:45 RDW 13.1 % (11.5-20.0) 02/03/19 04:45 Plt Count 355 Th/cmm (150-400) 02/03/19 04:45 MPV 7.8 fl 02/03/19 04:45 Add Manual Diff YES 02/02/19 05:24 Neutrophils % 87.9 % (40.0-80.0) H 02/03/19 04:45 Band Neutrophils % 3 % (0-10) 02/02/19 05:24 Lymphocytes % 9.9 % (20.0-50.0) L 02/03/19 04:45 Monocytes % 1.9 % (2.0-10.0) L 02/03/19 04:45 Eosinophils % 0.3 % (0.0-5.0) 02/03/19 04:45 Basophils % 0.0 % (0.0-2.0) 02/03/19 04:45 Neutrophils (Manual) 87 % (40-80) H 02/02/19 05:24 Lymphocytes 7 % (20-50) L 02/02/19 05:24 Monocytes 3 % (2-10) 02/02/19 05:24 Eosinophils 0 % (0-5) 01/30/19 18:40 Platelet Estimate ADEQUATE (NORMAL) 02/02/19 05:24 Platelet Morphology NORMAL (NORMAL) 01/30/19 18:40 RBC Morph Micro Appear NORMAL (NORMAL) 01/30/19 18:40 PT 9.9 SECONDS (9.5-11.5) 01/30/19 18:40 INR 0.95 (0.5-1.4) 01/30/19 18:40 PTT (Actin FS) 28.7 SECONDS (26.0-38.0) 01/30/19 18:40 D-Dimer < 100 ng/mL (100-400) L 01/30/19 18:40 Sodium 138 mEq/L (136-145) 02/02/19 05:24 Potassium 4.3 mEq/L (3.5-5.1) 02/02/19 05:24 Chloride 107 mEq/L (98-107) 02/02/19 05:24 Carbon Dioxide 24.4 mEq/L (21.0-31.0) 02/02/19 05:24 Anion Gap 10.9 (7.0-16.0) 02/02/19 05:24 BUN 18 mg/dL (7-25) 02/02/19 05:24 Creatinine 0.7 mg/dL (0.7-1.3) 02/02/19 05:24 Est GFR ( Amer) > 60.0 ml/min (>90) 02/02/19 05:24 Est GFR (Non-Af Amer) > 60.0 ml/min 02/02/19 05:24 BUN/Creatinine Ratio 25.7 02/02/19 05:24 Glucose 148 mg/dL (70-105) H 02/02/19 05:24 Whole Bld Lactic Acid 1.92 mmol/L (0.60-1.99) 01/30/19 18:40 Calcium 8.9 mg/dL (8.6-10.3) 02/02/19 05:24 Total Bilirubin 0.5 mg/dL (0.3-1.0) 01/30/19 18:40 AST 24 U/L (13-39) 01/30/19 18:40 ALT 27 U/L (7-52) 01/30/19 18:40 Alkaline Phosphatase 120 U/L (34-104) H 01/30/19 18:40 Creatine Kinase 445 U/L (30-223) H 01/30/19 18:40 CK-MB (CK-2) 8.0 ng/mL (0.6-6.3) H 01/30/19 18:40 Troponin I 0.01 ng/mL (0.01-0.05) 01/30/19 18:40 B-Natriuretic Peptide 19.4 pg/mL (5.0-100.0) 01/30/19 18:40 Total Protein 7.5 gm/dL (6.0-8.3) 01/30/19 18:40 Albumin 4.5 gm/dL (4.2-5.5) 01/30/19 18:40 Globulin 3.0 gm/dL 01/30/19 18:40 Albumin/Globulin Ratio 1.5 (1.0-1.8) 01/30/19 18:40 Triglycerides 66 mg/dL (<150) 01/30/19 18:40 Cholesterol 236 mg/dL (<200) H 01/30/19 18:40 LDL Cholesterol Direct 179 mg/dL (75-193) 01/30/19 18:40 HDL Cholesterol 53 mg/dL (23-92) 01/30/19 18:40 Urine Source MIDSTREAM 01/31/19 12:25 Urine Color YELLOW 01/31/19 12:25 Urine Clarity CLEAR (CLEAR) 01/31/19 12:25 Urine pH 6.0 (4.6 - 8.0) 01/31/19 12:25 Ur Specific [place] 1.015 (1.005-1.030) 01/31/19 12:25 Urine Protein NEGATIVE mg/dL (NEGATIVE) 01/31/19 12:25 Urine Glucose (UA) 250 mg/dL (NEGATIVE) H 01/31/19 12:25 Urine Ketones NEGATIVE mg/dL (NEGATIVE) 01/31/19 12:25 Urine Blood NEGATIVE (NEGATIVE) 01/31/19 12:25 Urine Nitrate NEGATIVE (NEGATIVE) 01/31/19 12:25 Urine Bilirubin NEGATIVE (NEGATIVE) 01/31/19 12:25 Urine Urobilinogen 0.2 E.U./dL (0.2 - 1.0) 01/31/19 12:25 Ur Leukocyte Esterase NEGATIVE (NEGATIVE) 01/31/19 12:25 Urine RBC NONE SEEN /hpf (0-5) 01/31/19 12:25 Urine WBC 0-2 /hpf (0-5) 01/31/19 12:25 Ur Epithelial Cells OCCASIONAL /lpf (FEW) 01/31/19 12:25 Urine Bacteria RARE /hpf (NONE SEEN) 01/31/19 12:25 Acetaminophen < 10.0 ug/mL (10.0-30.0) L 01/30/19 18:40 - Physical Exam Vitals and I&O: Vital Signs Temp 97.7 F 02/03/19 04:00 Pulse 63 02/03/19 04:00 Resp 18 02/03/19 05:00 BP 128/75 02/03/19 04:00 Pulse Ox 96 02/03/19 04:00 Intake & Output 02/02/19 02/02/19 02/03/19 06:59 18:59 06:59 Intake Total 850 400 Balance 850 400 Weight (lbs) 71.668 kg 71.668 kg Intake: Intake, IV Amount 350 Azithromycin 500 mg In 250 Sodium Chloride 0.9% 250 ml @ 250 mls/hr IV Q24H [facility] Rx#:[id number] Piperacillin Sodium/ 100 Tazobact 4.5 gm In Sodium Chloride 0.9% 100 ml @ 100 mls/hr IV Q8HR [facility] Rx #:[id number] Oral 500 400 Other: # Voids 3 2 # Bowel Movements 2 Stool Characteristics Soft Formed Brown Weight Source Bedscale Bedscale Active Medications: Current Medications Acetaminophen (Tylenol Extra Strength) 500 mg PO Q6H PRN PRN Reason: Fever > 101 Stop: 03/31/19 20:38 Albuterol Sulfate (Albuterol 2.5mg/3ml Neb Ud) 2.5 mg HHN Q2HRT PRN PRN Reason: Shortness of Breath Stop: 03/31/19 20:38 Last Admin: 02/02/19 11:04 Dose: 2.5 mg Albuterol/Ipratropium (Duoneb Neb) 3 ml HHN Q4HRT [facility] Stop: 04/03/19 14:59 Last Admin: 02/03/19 02:47 Dose: Not Given Guaifenesin (Mucinex) 600 mg PO Q12HR PRN PRN Reason: Cough or Congestion Stop: 04/03/19 14:55 Last Admin: 02/03/19 05:34 Dose: 600 mg Azithromycin 500 mg/ Sodium (Chloride) 250 mls @ 250 mls/hr IV Q24H [facility] Stop: 03/31/19 20:59 Last Admin: 02/02/19 20:34 Dose: 250 mls/hr Ceftriaxone Sodium 2 gm/ (Sodium Chloride) 100 mls @ 100 mls/hr IV Q24H [facility] Stop: 04/03/19 08:59 Last Admin: 02/02/19 08:16 Dose: 100 mls/hr Methylprednisolone Sodium Succinate (Solu-Medrol) 40 mg IVP Q6HR [facility] Stop: 04/02/19 17:59 Last Admin: 02/03/19 05:33 Dose: 40 mg Ondansetron HCl (Zofran) 4 mg IV Q6H PRN PRN Reason: Vomiting Stop: 03/31/19 20:38 Promethazine HCl (Phenergan) 6.25 mg PO Q4H PRN PRN Reason: Cough Stop: 04/03/19 14:56 Last Admin: 02/02/19 15:22 Dose: 6.25 mg General: no acute distress, well developed, well nourished HEENT: atraumatic, normocephalic, PERRLA, EOMI Neck: supple, no thyromegaly Cardiovascular: S1S2, regular Lungs: clear to auscultation bilaterally, clear to percussion Abdomen: soft, no tender, no distended, no mass Extremities: no cyanosis, no clubbing, no edema Neurological: awake, alert, oriented Skin: intact Infectious Disease Assmt/Plan - Assessment Assessment: 1. bronchitis. 2. Leukocytosis. most likely reactive. 3. COPD with exacerbation. - Plan Plan: Continue zithromax and rocephin.
--- NOTE | 2019-02-03 05:49 | Progress Notes ---
DATE: 02/02/2019 INFECTIOUS DISEASE PROGRESS NOTE SUBJECTIVE: The patient is lying in the bed, no acute distress, no fever, no chills. OBJECTIVE: VITAL SIGNS: Current vital signs show temperature is 98.6, pulse 79, respirations 20, blood pressure 128/62. GENERAL: The patient is comfortable, lying in the bed, no acute distress, no fever, no chills. HEENT: Head is normocephalic, atraumatic. Oral cavity is moist, pink tongue. NECK: Supple. No JVD, no carotid bruit. Trachea in midline. CHEST: Bilateral breath sounds. No crackles or wheezing. HEART: S1 and S2 within normal limits. Regular rhythm. No murmur, no gallop. ABDOMEN: Soft, nontender, nondistended. Bowel sounds present. EXTREMITIES: No cyanosis, no clubbing, no edema. NEUROLOGIC: Alert, awake, and oriented x 3. No focal deficit. LABORATORY DATA: Current lab shows WBC count is 21,100, hemoglobin 12.9, hematocrit is 37.8, platelets are 345,000, neutrophil is 87%. Sodium is 138, potassium 4.3, chloride 107, bicarbonate is 24, BUN is 18, creatinine 0.7, glucose 148. IMPRESSION: 1. Leukocytosis, most likely reactive. 2. Chronic obstructive pulmonary disease. 3. Left lower lobe nodular infiltrate, pneumonia versus atelectasis. 4. Rhabdomyolysis. RECOMMENDATIONS: Recommend to continue IV fluid support. Continue Rocephin and Zithromax. Check labs in the morning. JOB# [id number]
[2019-02-03 07:40] LABS: BAND NEUTROPHILE 1 % (0-10); LYMPHOCYTE 10 % (20-50); MONOCYTE 6 % (2-10); NEUTROPHILS 83 % (40-80); PLATELET ESTIMATE ADEQUATE (NORMAL)
[2019-02-03] MEDS: cefTRIAXone 2 GM in Sodium Chloride 0.9% 100 ML IV SCH (08:00)
--- NOTE | 2019-02-03 12:09 | General Progress Note ---
Subjective - Review of Systems Service Date: 02/03/19 Subjective: Patient seen and examined feels better sob better denied chest pain or palpitation or fever or chills Objective - Results Result Diagrams: 02/03/19 04:45 02/03/19 04:45 Recent Labs: Laboratory Last Values WBC 15.5 Th/cmm (4.8-10.8) H D 02/03/19 04:45 RBC 4.49 Mil/cmm (4.30-5.70) 02/03/19 04:45 Hgb 13.7 gm/dL (12-16) 02/03/19 04:45 Hct 41.2 % (41.0-60) 02/03/19 04:45 MCV 91.7 fl (80-99) 02/03/19 04:45 MCH 30.6 pg (26.0-30.0) H 02/03/19 04:45 MCHC Differential 33.4 pg (28.0-36.0) 02/03/19 04:45 RDW 13.1 % (11.5-20.0) 02/03/19 04:45 Plt Count 355 Th/cmm (150-400) 02/03/19 04:45 MPV 7.8 fl 02/03/19 04:45 Add Manual Diff YES 02/03/19 04:45 Neutrophils % [employer] 02/03/19 04:45 Band Neutrophils % 1 % (0-10) 02/03/19 04:45 Lymphocytes % [employer] 02/03/19 04:45 Monocytes % [employer] 02/03/19 04:45 Eosinophils % [employer] 02/03/19 04:45 Basophils % [employer] 02/03/19 04:45 Neutrophils (Manual) 83 % (40-80) H 02/03/19 04:45 Lymphocytes 10 % (20-50) L 02/03/19 04:45 Monocytes 6 % (2-10) 02/03/19 04:45 Eosinophils 0 % (0-5) 01/30/19 18:40 Platelet Estimate ADEQUATE (NORMAL) 02/03/19 04:45 Platelet Morphology NORMAL (NORMAL) 01/30/19 18:40 RBC Morph Micro Appear NORMAL (NORMAL) 01/30/19 18:40 PT 9.9 SECONDS (9.5-11.5) 01/30/19 18:40 INR 0.95 (0.5-1.4) 01/30/19 18:40 PTT (Actin FS) 28.7 SECONDS (26.0-38.0) 01/30/19 18:40 D-Dimer < 100 ng/mL (100-400) L 01/30/19 18:40 Sodium 133 mEq/L (136-145) L 02/03/19 04:45 Potassium 4.1 mEq/L (3.5-5.1) 02/03/19 04:45 Chloride 102 mEq/L (98-107) 02/03/19 04:45 Carbon Dioxide 23.7 mEq/L (21.0-31.0) 02/03/19 04:45 Anion Gap 11.4 (7.0-16.0) 02/03/19 04:45 BUN 16 mg/dL (7-25) 02/03/19 04:45 Creatinine 0.6 mg/dL (0.7-1.3) L 02/03/19 04:45 Est GFR ( Amer) > 60.0 ml/min (>90) 02/03/19 04:45 Est GFR (Non-Af Amer) > 60.0 ml/min 02/03/19 04:45 BUN/Creatinine Ratio 26.7 02/03/19 04:45 Glucose 141 mg/dL (70-105) H 02/03/19 04:45 Whole Bld Lactic Acid 1.92 mmol/L (0.60-1.99) 01/30/19 18:40 Calcium 9.1 mg/dL (8.6-10.3) 02/03/19 04:45 Total Bilirubin 0.5 mg/dL (0.3-1.0) 01/30/19 18:40 AST 24 U/L (13-39) 01/30/19 18:40 ALT 27 U/L (7-52) 01/30/19 18:40 Alkaline Phosphatase 120 U/L (34-104) H 01/30/19 18:40 Creatine Kinase 445 U/L (30-223) H 01/30/19 18:40 CK-MB (CK-2) 8.0 ng/mL (0.6-6.3) H 01/30/19 18:40 Troponin I 0.01 ng/mL (0.01-0.05) 01/30/19 18:40 B-Natriuretic Peptide 19.4 pg/mL (5.0-100.0) 01/30/19 18:40 Total Protein 7.5 gm/dL (6.0-8.3) 01/30/19 18:40 Albumin 4.5 gm/dL (4.2-5.5) 01/30/19 18:40 Globulin 3.0 gm/dL 01/30/19 18:40 Albumin/Globulin Ratio 1.5 (1.0-1.8) 01/30/19 18:40 Triglycerides 66 mg/dL (<150) 01/30/19 18:40 Cholesterol 236 mg/dL (<200) H 01/30/19 18:40 LDL Cholesterol Direct 179 mg/dL (75-193) 01/30/19 18:40 HDL Cholesterol 53 mg/dL (23-92) 01/30/19 18:40 Urine Source MIDSTREAM 01/31/19 12:25 Urine Color YELLOW 01/31/19 12:25 Urine Clarity CLEAR (CLEAR) 01/31/19 12:25 Urine pH 6.0 (4.6 - 8.0) 01/31/19 12:25 Ur Specific [place] 1.015 (1.005-1.030) 01/31/19 12:25 Urine Protein NEGATIVE mg/dL (NEGATIVE) 01/31/19 12:25 Urine Glucose (UA) 250 mg/dL (NEGATIVE) H 01/31/19 12:25 Urine Ketones NEGATIVE mg/dL (NEGATIVE) 01/31/19 12:25 Urine Blood NEGATIVE (NEGATIVE) 01/31/19 12:25 Urine Nitrate NEGATIVE (NEGATIVE) 01/31/19 12:25 Urine Bilirubin NEGATIVE (NEGATIVE) 01/31/19 12:25 Urine Urobilinogen 0.2 E.U./dL (0.2 - 1.0) 01/31/19 12:25 Ur Leukocyte Esterase NEGATIVE (NEGATIVE) 01/31/19 12:25 Urine RBC NONE SEEN /hpf (0-5) 01/31/19 12:25 Urine WBC 0-2 /hpf (0-5) 01/31/19 12:25 Ur Epithelial Cells OCCASIONAL /lpf (FEW) 01/31/19 12:25 Urine Bacteria RARE /hpf (NONE SEEN) 01/31/19 12:25 Acetaminophen < 10.0 ug/mL (10.0-30.0) L 01/30/19 18:40 - Physical Exam Vitals and I&O: Vital Signs Temp 98.0 F 02/03/19 11:53 Pulse 88 02/03/19 11:53 Resp 19 02/03/19 11:53 BP 115/66 02/03/19 11:53 Pulse Ox 90 02/03/19 11:53 Intake & Output 02/02/19 02/03/19 02/03/19 18:59 06:59 18:59 Intake Total 500 400 Balance 500 400 Weight (lbs) 71.668 kg 71.668 kg Intake: Intake, IV Amount 100 [id number] 2 gm In 100 Sodium Chloride 0.9% 100 ml @ 100 mls/hr IV Q24H [facility] Rx#:[id number] Oral 400 400 Other: # Voids 2 2 # Bowel Movements 2 1 Stool Characteristics Soft Soft Formed Formed Brown Brown Weight Source Bedscale Bedscale Active Medications: Current Medications Acetaminophen (Tylenol Extra Strength) 500 mg PO Q6H PRN PRN Reason: Fever > 101 Stop: 03/31/19 20:38 Albuterol Sulfate (Albuterol 2.5mg/3ml Neb Ud) 2.5 mg HHN Q2HRT PRN PRN Reason: Shortness of Breath Stop: 03/31/19 20:38 Last Admin: 02/02/19 11:04 Dose: 2.5 mg Albuterol/Ipratropium (Duoneb Neb) 3 ml HHN Q4HRT [facility] Stop: 04/03/19 14:59 Last Admin: 02/03/19 10:28 Dose: 3 ml Guaifenesin (Mucinex) 600 mg PO Q12HR PRN PRN Reason: Cough or Congestion Stop: 04/03/19 14:55 Last Admin: 02/03/19 05:34 Dose: 600 mg Azithromycin 500 mg/ Sodium (Chloride) 250 mls @ 250 mls/hr IV Q24H [facility] Stop: 03/31/19 20:59 Last Admin: 02/02/19 20:34 Dose: 250 mls/hr Ceftriaxone Sodium 2 gm/ (Sodium Chloride) 100 mls @ 100 mls/hr IV Q24H [facility] Stop: 04/03/19 08:59 Last Admin: 02/03/19 08:00 Dose: 100 mls/hr Methylprednisolone Sodium Succinate (Solu-Medrol) 40 mg IVP Q6HR [facility] Stop: 04/02/19 17:59 Last Admin: 02/03/19 11:02 Dose: 40 mg Ondansetron HCl (Zofran) 4 mg IV Q6H PRN PRN Reason: Vomiting Stop: 03/31/19 20:38 Promethazine HCl (Phenergan) 6.25 mg PO Q4H PRN PRN Reason: Cough Stop: 04/03/19 14:56 Last Admin: 02/02/19 15:22 Dose: 6.25 mg General: Alert Cardiovascular: Regular rate Lungs: Other (rales) Extremities: no Edema Assessment/Plan - Assessment Assessment: Pneumonia Acute COPD Exacerbation - Plan Plan: Continue Zosyn Continue Solumedrol Continue HHN Oxygen
--- NOTE | 2019-02-03 12:55 | Progress Notes ---
DATE: 02/02/2019 PULMONARY PROGRESS NOTE SUBJECTIVE: The patient appears to be doing okay, no distress, still having some cough and congestion. OBJECTIVE: VITAL SIGNS: Temperature is 97.0, pulse 80, respirations 18, blood pressure 132/68, saturation 96% on 3 liters oxygen. CHEST: There are some rhonchi and wheezing bilaterally. HEART: Regular rate and rhythm. ABDOMEN: Soft. EXTREMITIES: No edema. IMPRESSION: 1. Acute chronic obstructive pulmonary disease exacerbation. 2. Respiratory failure. 3. Acute bronchitis. PLAN: 1. Continue IV Solu-Medrol. 2. Add Mucinex and cough medicine. 3. Nebulizer treatment. JOB# [id number]
--- NOTE | 2019-02-21 00:32 | Discharge Summary ---
DATE OF DISCHARGE: 02/03/2019 FINAL DIAGNOSES: 1. Acute chronic obstructive pulmonary disease exacerbation. 2. Pneumonia. HOSPITAL COURSE: This is a 53-year-old male admitted for shortness of breath, diagnosed with acute COPD exacerbation with pneumonia. The patient was started on broad-spectrum IV antibiotic, IV Solu-Medrol, bronchodilator treatment, seen by Pulmonology, ID, concurred with ongoing treatment plan. Subsequently, the patient's pulmonary status started improving. The patient's Solu-Medrol was tapered, antibiotic was tapered. Subsequently, the patient was cleared for discharge with the oral prednisone, oral antibiotic and bronchodilator treatments. DISCHARGE CONDITION: Stable. DISCHARGE MEDICATIONS: Please see medication list. DISCHARGE INSTRUCTIONS: The patient was highly advised to follow up with the primary MD and computer aide as an outpatient upon discharge. Smoking cessation highly advised. [facility]# [id number]
== END 2019-02-03 12:35 | disposition home or self-care (01) | DRG 871 ==
LOC: ER 18:15 → TELE 20:15
PROVIDERS: ADMIT Family Medicine; ATTEND Family Medicine
DX: A41.9 Sepsis, unspecified organism (principal); J18.9 Pneumonia, unspecified organism; J96.90 Respiratory failure, unspecified, unspecified whether with hypoxia or hypercapnia; J44.1 Chronic obstructive pulmonary disease with (acute) exacerbation; M62.82 Rhabdomyolysis; J44.0 Chronic obstructive pulmonary disease with (acute) lower respiratory infection; E86.0 Dehydration; D72.829 Elevated white blood cell count, unspecified; I10 Essential (primary) hypertension; J20.9 Acute bronchitis, unspecified; I20.9 Angina pectoris, unspecified; Z88.8 Allergy status to other drugs, medicaments and biological substances; Z87.891 Personal history of nicotine dependence; Z82.49 Family history of ischemic heart disease and other diseases of the circulatory system
CPT/HCPCS: 36415-UA; 71045-TC; 71250-TC; 80048-TC; 80053-TC; 80061-TC; 80329-TC; 81001-TC; 82550-TC; 82553; 83605; 83880-TC; 84484-TC; 85007-TC; 85025-TC; 85379-TC; 85610-TC; 85730-TC; 93005; 94640; 94760; J0456; J0696; J1940; J2543; J2920; J2930; J7030; J7613